=== PATIENT | male | born 1975 | race Caucasian/White ===

== ENCOUNTER 2017-05-06 23:50 | Emergency (ER) | payer SELFPAY ==
[2017-05-06 23:52] VITALS: BP 132/78; PULSE 86; RESP 16; TEMP 98; O2SAT 97
[2017-05-07] MEDS ORDERED: SODIUM CHLOR 0.9% 1000 ML INJ 1,000 ML IV ONE (00:23)
--- NOTE | 2017-05-07 00:25 | PD ---
HPI Chief Complaint: Headache Time Seen by Provider: 00:23 Travel History International Travel<30 days: No Contact w/Intl Traveler<30days: No History of Present Illness HPI The patient is a 42-year-old male who presents to the emergency department for headache. The patient states he has had a left-sided headache intermittently for the last 3 days. The headache is described as throbbing, intense, located in her left aspect of his head, and associated with phonophobia. He denies any photophobia, nausea, vomiting, fever, or neck pain. He does note occasionally pain radiates to the left ear and into the left upper jaw. 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 He denies any trauma to the head and denies any current focal deficits. The patient is currently visiting from [place], [place]. He does not have a local primary physician in the area. Symptoms are moderate without any alleviating or exacerbating factors. He has been taking [id number] ibuprofen with minimal relief of his symptoms. [facility] Past Medical History Diminished Hearing: No Medical other: Yes (SUBDURAL HEMATOMA PER PT) Tetanus Vaccination: Unknown Influenza Vaccination: No Past Surgical History Surgical History: No Previous Surgery Social History Alcohol Use: Yes (MONTHLY) Tobacco Use: Yes (1PPD) Substance Use: No Allergies-Medications (Allergen,Severity, Reaction): Coded Allergies: No Known Allergies (Unverified , 05/06/17) Reported Meds & Prescriptions Reported Meds & Active Scripts Active No Active Prescriptions or Reported Medications Review of Systems Except as stated in HPI: all other systems reviewed are Neg General / Constitutional: No: Fever Eyes: No: Photophobia HENT: Positive: Headaches, No: Neck Pain Cardiovascular: No: Chest Pain or Discomfort Respiratory: No: Shortness of Breath Gastrointestinal: No: Nausea, Vomiting Neurologic: Positive: Headache, No: Change in Mentation, Slurred Speech, Paresthesia, Sensory Disturbance Physical Exam Narrative GENERAL: Awake, alert, pleasant 42-year-old male who appears his stated age and is in no acute respiratory distress. SKIN: Focused skin assessment warm/dry. HEAD: Atraumatic. Normocephalic. EYES: Pupils equal and round. Pupils are 3 mm bilateral and reactive. EOMs are intact. Patient is a was see fingers at a distance of 2 feet without difficulty. ENT: No nasal bleeding or discharge. Mucous membranes pink and moist. TMs are translucent. EACs are clear. No tenderness over the TMJ on the left. Palpation of the upper dentition does not reproduce pain. No palpable abscess. NECK: Trachea midline. No JVD. No meningeal signs. CARDIOVASCULAR: Regular rate and rhythm. No murmur appreciated. RESPIRATORY: No accessory muscle use. Clear to auscultation. Breath sounds equal bilaterally. GASTROINTESTINAL: Abdomen soft, non-tender, nondistended. MUSCULOSKELETAL: No obvious deformities. No clubbing. No cyanosis. No edema. NEUROLOGICAL: Awake and alert. No obvious cranial nerve deficits. Motor grossly within normal limits. Normal speech. Nonfocal. Oriented 4. Follows commands without difficulty. PSYCHIATRIC: Appropriate mood and affect; insight and judgment normal. Data Data Last Documented VS Orders Orders Ct Brain W/O Iv Contrast(Rout) (05/07/17 00:23) Ecg Monitoring (05/07/17 00:23) Iv Access Insert/Monitor (05/07/17 00:23) Oximetry (05/07/17 00:23) Sodium Chloride 0.9% Flush (Ns Flush) (05/07/17 00:30) Prochlorperazine Inj (Compazine Inj) (05/07/17 00:30) Diphenhydramine Inj (Benadryl Inj) (05/07/17 00:30) Sodium Chlor 0.9% 1000 Ml Inj (Ns 1000 M (05/07/17 00:23) Morphine Inj (Morphine Inj) (05/07/17 00:30) Ketorolac Inj (Toradol Inj) (05/07/17 01:45) Ed Discharge Order (05/07/17 01:43) [facility] Medical Decision Making Medical Screen Exam Complete: Yes Emergency Medical Condition: Yes Medical Record Reviewed: Yes Interpretation(s) Last Impressions Head CT 05/07/17 0023 Signed Impressions: Service Date/Time: Sunday, May 07, 2017 00:59 - CONCLUSION: Negative noncontrast CT Michael Ortiz MD Differential Diagnosis Differential diagnosis includes tension headache, glaucoma, intracranial hemorrhage, subarachnoid hemorrhage, otitis media, malignant otitis externa, TMJ , referred pain, odontalgia. Narrative Course IV was established and the patient was placed on cardiac telemetry monitoring and continuous pulse oximetry monitoring. The patient was administered morphine , Compazine, Benadryl, and IV fluids. Noncontrast CT of the brain was obtained. CT of the brain was negative. Patient was reassessed and symptoms have improved. The patient was subsequently discharged home. He is advised to return if symptoms worsen or progress. Diagnosis Primary Impression: Cephalgia Qualified Codes: R51 - Headache Patient Instructions: General Instructions, Narcotic given in the ED Additional Instructions: Follow-up with a primary physician. Please provide the patient a copy of his CT results at discharge. Return if symptoms worsen or progress. Med/Other Pt SpecificInfo: No Change to Meds Scripts No Active Prescriptions or Reported Meds Disposition: DISCHARGE HOME Condition: Stable Femi Graham MD May 07, 2017 00:25
[2017-05-07] MEDS ORDERED: PROCHLORPERAZINE INJ 10 MG/2 ML VIAL IVP ONE (00:30)
[2017-05-07] MEDS ORDERED: SODIUM CHLORIDE 0.9% FLUSH 10 ML FLUSH IVF PRN (00:30)
[2017-05-07] MEDS ORDERED: MORPHINE SULFATE 4 MG/ML INJ IV PUSH ONE (00:30)
[2017-05-07] MEDS ORDERED: diphenhydrAMINE HCL 50 MG/ML VIAL IVP ONE (00:30)
[2017-05-07 01:00] VITALS: BP 107/72; PULSE 78; RESP 20; O2SAT 97
[2017-05-07 01:30] VITALS: BP 120/72; PULSE 62; RESP 16; O2SAT 96
--- NOTE | 2017-05-07 01:34 | RADRPT ---
EXAM DATE/TIME: 05/07/2017 00:59 [facility] COMPARISON: No previous studies available for comparison. INDICATIONS : Cephalgia. RADIATION DOSE: 35.92 CTDIvol (mGy) MEDICAL HISTORY : Subdural Hemorrhage. SURGICAL HISTORY : None. ENCOUNTER: Initial ACUITY: 1 day PAIN SCALE: 10/10 LOCATION: cranial TECHNIQUE: Multiple contiguous axial images were obtained of the head. Using automated exposure control and adj ustment of the mA and/or kV according to patient size, radiation dose was kept as low as reasonably a chievable to obtain optimal diagnostic quality images. DICOM format image data is available electro nically for review and comparison. FINDINGS: CEREBRUM: The ventricles are normal for age. No evidence of midline shift, mass lesion, hemorrhage or acute in farction. No extra-axial fluid collections are seen. POSTERIOR FOSSA: The cerebellum and brainstem are intact. The 4th ventricle is midline. The cerebellopontine angle i s unremarkable. EXTRACRANIAL: The visualized portion of the orbits is intact. SKULL: The calvaria is intact. No evidence of skull fracture. CONCLUSION: Negative noncontrast CT Michael Ortiz MD on May 07, 2017 at 1:33 Board Certified Radiologist. This report was verified electronically.
[2017-05-07] MEDS ORDERED: KETOROLAC TROMETHAMINE 30 MG/ML (IVP) VIAL IV PUSH ONE (01:45)
[2017-05-07 02:00] VITALS: BP 104/56; PULSE 64; RESP 16; O2SAT 95
[2017-05-07 02:32] VITALS: BP 92/52; PULSE 67; RESP 16; O2SAT 96
[2017-05-07 03:09] VITALS: BP 107/58; TEMP 97.5
== END 2017-05-07 03:16 | disposition home or self-care (01) ==
LOC: NEPD 23:50
DX: R51 Headache (principal); F17.200 Nicotine dependence, unspecified, uncomplicated
CPT/HCPCS: 70450; 96361; 96374; 96375; 99285; J0780; J1200; J1885; J2270; J7030